=== PATIENT | male | born 1945 | race Caucasian/White ===

== ENCOUNTER → 2019-03-10 | Outpatient (CLI) | payer OTHER ==
[~2019-03-10] MED LIST: ASPIR 8181 MG PO; ASPIRIN325 PO; ATORVASTATIN CA40 MG PO; AZITHROMYCIN250 MG PO; BP MED PO; BRILINTA90 MG PO; CHLORTHALIDONE25 MG PO; COREG6.25 MG PO; IRON325 PO; LASIX 40 MG TAB40 M2 PO; LEXAPRO20 MG PO; LIPITOR40 MG PO; LOSARTAN POTASS50 MG PO; NIASPAN ER 101000 M1 PO; NITROGLYCERIN0.4 MG SUBLING; NORVASC5 MG PO; OSELB75 PO; PEPCID40 MG PO; PLAVIX 75 MG TA75 MG PO; POTASSIUM CHLO10 MEQ PO; PREDNISONE 10 M10 MG PO; PRINZIDE 20-121 EACH PO; PROAIR HFA8.5 GM INH; RANITIDINE HCL300 M1 PO; TOPROL XL25 MG PO; TRICOR145 MG PO
--- NOTE | 2019-03-10 16:06 | CARDNUC ---
[place] [address] CARDIAC NUCLEAR IMAGING REPORT Name: FREDI UPTON Room: [facility]#: [id number] Admission: 03/10/19 Attend Phys: Coy Mayes Discharge: Date of : 49 Date of Service: 03/10/19 1605 Report #: [id number] THIS REPORT FOR: //name// APPROVED REPORT Study performed: 03/10/2019 09:04:13 Exam: Nuclear Stress Test Indication: Dyspnea, s/p stent Patient Location: Out-Patient Stress Tech: Luz Scruggs Stress Nurse: Nehal Sweeney RN NM Tech:ERAN Chapman Ht: 5 ft 10 in Wt: 196 lbs BSA: 2.07 m2 BMI: 28.12 Medical History Medical History: cardiomyopathy, copd, chf, cad, mi, hyperlipidemia, hypertension Medications: asa-81, lipitor, lasix, klor-con, ntg, metoprolol Allergies: nkda Cardiac Risk Factors: age, hyperlipidemia, hypertension Previous Cardiac Procedures: pci Exercise History: Indeterminate Meds Held (24 hrs): metoprolol Stress Test Details Stress Test: Pharmacologic stress testing performed using 0.4 mg of regadenoson per 5 mL given IV over 10 seconds. Reason for pharmacologic stress test: LBBB. HR Resting HR: 67 bpm Max Heart Rate (APMHR): 149 bpm Max HR Achieved: 88 bpm Target HR (85% APMHR): 126 bpm % of APMHR: 59 Recovery HR: 77 bpm HR response to stress: Normal HR response to stress BP Resting BP: 158/74 mmHg Max BP: 170/59 mmHg BP response to stress: [place] [address] CARDIAC NUCLEAR IMAGING REPORT Name: FREDI UPTON Room: [facility]#: [id number] Admission: 03/10/19 Attend Phys: Coy Mayes Discharge: Date of : 49 Date of Service: 03/10/19 1605 Report #: [id number] stress. ECG Resting ECG: nsr 1 avb rbbb Stress ECG: same ST Change: none Arrhythmia: had pause see below Clinical Reason for Termination: Completed protocol Exercise duration: 0 min sec Exercise capacity: 1 METs Nurse Comments pt had a [address] Mendoza consulted. vo to instruct patient to stop metoprolol and all Dr king for recheck nest week Stress ECG Conclusion negative for ischemia NM EXAM: Myocardial Perfusion REST/STRESS Imaging Protocol: Rest Tc-99m/Stress Tc-99m 1 day Resting Data Rest SPECT myocardial perfusion imaging was performed in supine position 30 minutes following the intravenous injection of 11.8 mCi of Tc-99m Sestamibi. Time of rest injection: 739 Date: 03/10/2019 The images were gated to evaluate regional wall motion and calculate left ventricular ejection fraction. Administration Route: IV Administration Site: Right Hand Pharmacologic Stress Pharmacologic stress test was performed by injecting Regadenoson 0.4 mg IV push followed by the intravenous injection of 33.9 mCi of Tc-99m Sestamibi. Time of stress injection: 919 Date: 03/10/2019 Administration Route: IV Administration Site: Right Hand Gated Stress SPECT was performed 40 minutes after stress injection. The images were gated to evaluate regional wall motion and calculate left ventricular ejection fraction. Stress only was performed in the Supine [place] [address] CARDIAC NUCLEAR IMAGING REPORT Name: FREDI UPTON Room: [facility]#: [id number] Admission: 03/10/19 Attend Phys: Coy Mayes Discharge: Date of : 49 Date of Service: 03/10/19 1605 Report #: [id number] Study: Good Artifact: Mild Increased GI uptake Lung Uptake: Normal Study Data At rest, the left ventricular ejection fraction was 60%.. Post stress, the left ventricular ejection was 60%.. SSS: 12 SRS: 14 SDS: -2 Perfusion Review of SPECT images at rest demonstrate a moderate sized , moderate intensity inferior defect and normal perfusion in other segments. When imaged following vasodilator stress the defect is noted to be fixed, without reversibility. 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 Images were reviewed using [employer]. Wall Motion inferior hypokinesis Nuclear Conclusion ECG Findings: negative for ischemia Clinical Findings: negative for ischemia Nuclear Findings: negative for ischemia Exercise Capacity: not assessed Left Ventricular Function: normal Risk Study: low Study shows evidence of prior inferior infarct . Moderate sized, no ischemia present. Had mild pause , 2 seconds. Betablocker held upon discharge <Conclusion> negative for ischemia <ELECTRONICALLY SIGNED> By: Shon Martinez MD, FACC 03/10/19 1605 1605 1605 Shon Martinez MD, FACC /INF
== END ==
LOC: M.NUC 02-01 13:41
DX: I25.10 Atherosclerotic heart disease of native coronary artery without angina pectoris (principal); I44.7 Left bundle-branch block, unspecified; J44.9 Chronic obstructive pulmonary disease, unspecified; I11.0 Hypertensive heart disease with heart failure; I50.9 Heart failure, unspecified; I25.2 Old myocardial infarction; E78.5 Hyperlipidemia, unspecified; Z95.818 Presence of other cardiac implants and grafts; Z79.899 Other long term (current) drug therapy

== ENCOUNTER → 2019-05-09 | Outpatient (CLI) | payer OTHER ==
[~2019-05-09] VITALS: Ht 177.8 cm; Wt 86.3 kg
[~2019-05-09] MED LIST changes: -ATORVASTATIN CA40 MG PO; +LIPITOR80 MG PO; +LISINOPRIL10 MG PO; +METFORMIN HCL500 MG PO; +OMEPRAZOLE40 MG PO; +VENTOLIN HFA 1818 GM INH; +VIAGRA100 MG PO
[2019-05-09 12:34] VITALS: BP 142/76
[2019-05-09 12:54] LABS: HEMATOCRIT 40.3 % (42.0-52.0); HEMOGLOBIN 13.8 gm/dL (14.0-18.0); MCH 30.1 pg (26.0-34.0); MCHC 34.3 g/dL (28.0-37.0); MCV 87.7 fL (80.0-100.0); MPV 8.8 fl. (7.2-11.1); RBC 4.59 mil/uL (4.50-6.00); RDW-CV 14.1 % (10.5-14.5); WBC 10.8 thou/uL (4.0-11.0)
[2019-05-09 13:00] LABS: ANION GAP 7 mmol/L (7-16); APTT 27.6 Seconds (25.0-31.3); BUN 14 mg/dL (7-18); CALCIUM 9.1 mg/dL (8.5-10.1); CHLORIDE 101 mmol/L (98-107); CO2 31 mmol/L (21-32); CREATININE 0.9 mg/dL (0.6-1.3); GLUCOSE 102 mg/dL (70-99); POTASSIUM 3.8 mmol/L (3.5-5.1); PROTIME 10.3 Seconds (9.20-11.50); SODIUM 139 mmol/L (136-145)
[2019-05-09 13:06] LABS: ALBUMIN 3.6 g/dL (3.4-5.0); ALKALINE PHOSPHATASE 95 U/L (46-116); CHOLESTEROL 154 mg/dL (<200); HDL CHOLESTEROL 46 mg/dL (>40); LDL CHOLESTEROL 88 mg/dL (<100); SERUM ASSESSMENT Clear; SGOT 12 U/L (15-37); SGPT 17 U/L (30-65); TC:HDL 3.3 Ratio (Not establshd); TOTAL BILIRUBIN 1.2 mg/dL (<0.1-1.0); TOTAL PROTEIN 7.9 g/dL (6.4-8.2); TRIGLYCERIDE 103 mg/dL (<150); VLDL 21 mg/dL (<40)
--- NOTE | 2019-05-09 14:44 | EKG ---
[place] [address] ELECTROCARDIOGRAM REPORT Name: WONFREDI Terra Room: [facility]#: [id number] Admission: 05/09/19 Attend Phys: Sudheer Delatorre MD, Discharge: Date of : 49 Report #: [id number] THIS REPORT FOR: //name// [facility] Test Date: 2019-05-09 Test Time: 12:58:54 Pat Name: FREDI UPTON Department: Room: Gender: M Paper Steamer: : 1945 Requested By: Jairon Guo Order Number: [id number] Jean-Claude MD: Taiwo Mendoza Measurements Intervals [place] Rate: 81 P: 64 IL: 244 QRS: -81 QRSD: 137 T: 64 QT: 398 QTc: 462 Interpretive Statements Sinus rhythm Prolonged [place] interval RBBB and LAFB Compared to ECG 11/28/2016 03:20:04 T-wave abnormality no longer present Possible ischemia no longer present Electronically Signed On 05-09-2019 14:43:46 CDT by Taiwo Mendoza [email or web address] <ELECTRONICALLY SIGNED> By: Taiwo Mendoza MD, [facility] 05/09/19 1443 1258 1258 Taiwo Mendoza MD, [facility] /EPI
[2019-05-09 15:30] VITALS: BP 163/74
[2019-05-09 15:45] VITALS: BP 15/180
[2019-05-09 16:00] VITALS: BP 162/78
[2019-05-09 16:15] VITALS: BP 137/69
--- NOTE | 2019-06-06 17:15 | CARD ---
[address] [address] CARDIAC CATH REPORT Name: FREDI UPTON Room: [facility]#: [id number] Admission: 05/09/19 Attend Phys: Sudheer Delatorre MD, Discharge: Date of : 49 Report #: [id number] THIS REPORT FOR: //name// ADDENDUM APPROVED REPORT Study performed: 05/09/2019 14:18:14 Patient Status: Out-Patient Room #: Event Personnel: Jairon Guo Events And Promotions Assistant, Rhona Burnett RN Skein Winding Operator, Chava Gates (R) Scrub, Cheri Rodriguez RTArtemio Scrub, Mihir Tellez COMPUTER SUPPORT ANALYST Monitor Exam: Insertion of Dual Chamber Permanent Pacemaker Indications: sick sinus syndrome The patient is a 73 year-old male with a history of sick sinus syndrome. Conscious Sedation Fentanyl 50 mcg Versed 2 mg Implanted Devices: Biotronik Eluna 8 DRT, serial #[id number] dual-chamber pulse generator. Biotronik Solia S 60, serial #[id number] ventricular lead. Biotronik Solia S 53, serial #[id number] atrial lead. Procedure The patient underwent informed consent. We discussed the details of the procedure including the risks, which include, but not limited to bleeding, infection, vascular damage, cardiac perforation, and pneumothorax. After informed consent was obtained the patient was brought to the interventional radiology lab. The area of the left chest was prepped and draped in sterile fashion. Local anesthesia was achieved with 1% lidocaine. Next after an initial incision was made a device pocket was formed over the left pectoralis muscle using electrocautery and blunt dissection. A venogram of the left upper extremity was obtained showing patency and location of the left subclavian vein. A micropuncture kit was utilized to access the subclavian vein and ultimately a safety J guidewire advanced to the area of the right atrium under fluoroscopic guidance. The guidewire was externally fixed with a Yenifer forcep. Utilizing the micropuncture kit for a second time the left subclavian vein was again accessed and ultimately a safety J guidewire advanced to the area of the right atrium under fluoroscopic guidance. Next a 7 Libyan tear-away introducer was advanced over the free guide[place] [address] CARDIAC CATH REPORT Name: FREDI UPTON Room: [facility]#: [id number] Admission: 05/09/19 Attend Phys: Sudheer Delatorre MD, Discharge: Date of : 49 Report #: [id number] dilator were removed as a ventricular lead was advanced to a secure position within the right ventricular apex under fluoroscopic guidance. The lead was actively fixed. Thresholds were checked and deemed to be satisfactory. There was no diaphragmatic stimulation with maximum output pacing. The tear-away introducer was removed. Next a 7 Libyan tear-away introducer was advanced over the remaining guidewire. The dilator and guidewire were removed and an atrial lead advanced to a secure position within the right atrial appendage. The lead was actively fixed. Thresholds were checked and deemed to be satisfactory. There was no phrenic nerve pacing with maximum output pacing. The tear-away introducer was then removed. Next after adequate slack was assured and the atrial and ventricular leads the leads were secured within the device pocket using interrupted stitches of 2-0 silk suture and the designated cuffs. The device pocket was then flushed with antibiotic solution. Next the atrial and ventricular leads were attached to the dual-chamber pulse generator. The pulse generator and redundant leads were then placed within the device pocket. The deep tissues were closed using interrupted stitches of 2-0 Vicryl. The skin incision was then closed with a single subcutaneous stitch of 4-0 Vicryl. Several Steri-Strips were placed across the incision. A sterile Telfa dressing was then covered with a Tegaderm. The patient tolerated the procedure well and without complication. Electrode Parameters P Wave: 2.9 mV R Wave: 14 mV Atrial Threshold: 1.3 V at 0.40 ms Ventricular Threshold: 0.3 V at 0.40 ms Atrial Resistance: 535 ohms Ventricular Resistance: 707 ohms Conclusion 1. Sick sinus syndrome. 2. Successful placement of a dual-chamber pacemaker with atrial and ventricular lead placement. 3. Venogram of the left upper extremity showing patency of the left subclavian vein. Recommendations 1. Follow-up site check in one week. 2. Follow-up with device interrogation in one to 2 months. <ELECTRONICALLY SIGNED> By: Jairon Guo MD, FACC 06/06/19 1715 14 1715Michaedeedee uGo MD, FACC /INF
== END | disposition home or self-care (01) ==
LOC: M.CL 12:06
PROVIDERS: Internal Medicine Cardiovascular Disease
DX: I49.5 Sick sinus syndrome (principal); N40.0 Benign prostatic hyperplasia without lower urinary tract symptoms; I10 Essential (primary) hypertension; I25.10 Atherosclerotic heart disease of native coronary artery without angina pectoris; F17.210 Nicotine dependence, cigarettes, uncomplicated; I21.4 Non-ST elevation (NSTEMI) myocardial infarction; J44.1 Chronic obstructive pulmonary disease with (acute) exacerbation; Z98.890 Other specified postprocedural states; Z95.5 Presence of coronary angioplasty implant and graft; Z79.899 Other long term (current) drug therapy; Z79.82 Long term (current) use of aspirin

== ENCOUNTER → 2020-02-12 | Outpatient (CLI) | payer OTHER ==
--- NOTE | 2020-02-12 13:51 | 2DMMODE ---
[place] [address] 2 D/M-MODE ECHOCARDIOGRAM Name: FREDI UPTON Room: [facility]#: [id number] Admission: 02/12/20 Attend Phys: Coy Mayes Discharge: Date of : 49 Date of Service: 02/12/20 1349 Report #: [id number] THIS REPORT FOR: cc: Sudheer Reis John E. DO Holkins, John M. MD [facility] ~ APPROVED REPORT Study performed: 02/12/2020 09:56:12 EXAM: Comprehensive 2D, Doppler, and color-flow Echocardiogram Patient Location: Out-Patient BSA: 2.07 HR: 80 bpm BP: 154/90 mmHg Other Information Study Quality: Fair Indications Cardiomyopathy 2D Dimensions IVSd: 14.94 (7-11mm) LVOT Diam: 20.87 (18-24mm) LVDd: 51.60 mm PWd: 11.87 (7-11mm) Ascending Ao: 30.99 (22-36mm) LVDs: 36.31 (25-40mm) Aortic Root: 29.67 mm Volumes Left Atrial Volume (Systole) LA ESV Index: 16.90 mL/m2 Aortic Valve AoV Peak Edy.: 1.50 m/s AO Peak Gr.: 9.04 mmHg LVOT Max P.43 mmHg AO Mean Gr.: 5.33 mmHg LVOT Mean P.36 mmHg LVOT Max V: 1.05 m/s AO V2 VTI: 28.74 cm LVOT Mean V: 0.71 m/s EBER (VTI): 2.60 cm2 LVOT V1 VTI: 21.82 cm Mitral Valve MV Decel. Time: 182.33 [place] [address] 2 D/M-MODE ECHOCARDIOGRAM Name: FREDI UPTON Room: [facility]#: [id number] Admission: 02/12/20 Attend Phys: Coy Mayes Discharge: Date of : 49 Date of Service: 02/12/20 1349 Report #: [id number] MV PHT: 52.88 ms MVA (PHT): 4.16 cm2 TDI Medial E' Edy.: 0.04 m/s Lateral E' Edy.: 0.07 m/s Pulmonary Valve PV Peak Edy.: 0.80 m/s PV Peak Gr.: 2.56 mmHg Left Ventricle The left ventricle is normal size. There is normal LV segmental wall motion. There is normal left ventricular wall thickness. Left ventricular systolic function is borderline. LVEF is 50-55%. This study is not technically sufficient to allow evaluation of the LV diastolic function. Right Ventricle The right ventricle is normal size. The right ventricular systolic function is normal. Pacemaker lead is present in the right ventricle. Atria The left atrium size is normal. Pacemaker lead is present in the right atrium. Aortic Valve Aortic valve is mildy calcified. No aortic regurgitation is present. There is no aortic valvular stenosis. Mitral Valve The mitral valve is normal in structure. Mild mitral regurgitation. No evidence of mitral valve stenosis. Tricuspid Valve The tricuspid valve is normal in structure. There is no tricuspid valve regurgitation noted. Pulmonic Valve The pulmonary valve is normal in structure. There is no pulmonic valvular regurgitation. Great Vessels The aortic root is normal in size. IVC is normal in size and collapses >50% [place] [address] 2 D/M-MODE ECHOCARDIOGRAM Name: FREDI UPTON Room: [facility]#: [id number] Admission: 02/12/20 Attend Phys: Coy Mayes Discharge: Date of : 49 Date of Service: 02/12/20 1349 Report #: [id number] There is no pericardial effusion. <Conclusion> The left ventricle is normal size. There is normal left ventricular wall thickness. Left ventricular systolic function is borderline. LVEF is 50-55%. The right ventricle is normal size. The left atrium size is normal. Aortic valve is mildy calcified. No aortic regurgitation is present. There is no aortic valvular stenosis. The mitral valve is normal in structure. Mild mitral regurgitation. The tricuspid valve is normal in structure. IVC is normal in size and collapses >50% with inspiration. There is no pericardial effusion. There is normal LV segmental wall motion. <ELECTRONICALLY SIGNED> By: Sudheer Delatorre MD, [facility] 02/12/20 1349 1349 1349 Sudheer Delatorre MD, FACC /INF
== END ==
LOC: M.CRD 09:56
DX: I08.0 Rheumatic disorders of both mitral and aortic valves (principal); I25.5 Ischemic cardiomyopathy; I10 Essential (primary) hypertension

== ENCOUNTER → 2021-03-05 | Outpatient (CLI) | payer OTHER | LOC: M.LAB 05:38 | PROVIDERS: ATTEND Anesthesiology | DX: E87.6 Hypokalemia (principal) ==